=== PATIENT | male | born 1975 | race Two or more races ===

== ENCOUNTER 2020-06-24 08:46 | Emergency (ER) | payer OTHER ==
[~2020-06-24] VITALS: Ht 180.3 cm; Wt 93.0 kg
[2020-06-24 09:09] VITALS: BP 128/81
== END 2020-06-24 09:58 | disposition home or self-care (01) ==
LOC: ER 08:46
DX: S86.812A Strain of other muscle(s) and tendon(s) at lower leg level, left leg, initial encounter (principal); I48.91 Unspecified atrial fibrillation; I10 Essential (primary) hypertension; X58.XXXA Exposure to other specified factors, initial encounter; Y93.89 Activity, other specified; Y92.89 Other specified places as the place of occurrence of the external cause; Y99.0 Civilian activity done for income or pay
CPT/HCPCS: 93971